=== PATIENT | female | born 1980 | race American Indian/Alaskan Native ===

== ENCOUNTER 2020-10-23 23:35 | Emergency (ER) | payer SELFPAY ==
[2020-10-24 01:22] VITALS: BP 144/85
[2020-10-24] MEDS ORDERED: ACETAMINOPHEN 325 MG TAB PO ONE (01:25)
--- NOTE | 2020-10-24 03:23 | Emergency Department Report ---
Upper Extremity - HPI Chief Complaint: Wound/Laceration Stated Complaint: LACERATION TO RIGHT PINKY FINGER Time Seen by Provider: 10/24/20 03:04 Upper Extremity: Right Little Finger Occurred When: Today Mechanism: Fall Severity: mild Symptoms: Yes Pain with Movement, Yes Swelling, Yes Laceration or Abrasion, No Deformity ED Review of Systems ROS: Stated complaint: LACERATION TO RIGHT PINKY FINGER Other details as noted in HPI Comment: All other systems reviewed and negative ED Past Medical Hx - Past Medical History Previous Medical History?: No Upper Extremity Exam - Exam General: Vital signs noted. No distress. Alert and acting appropriately. Head and Torso: No HEENT Abnormality Shoulder Exam: No Shoulder Tenderness, No Clavicle Tenderness, No Normal Range of Motion in Shoulder, No Shoulder Deformity Arm Exam: No Arm/Humerus Tenderness Elbow: No Elbow Tenderness, No Normal Range of Motion in Elbow Forearm: No Forearm Tenderness, No Forearm Deformity, No Pain with Pronation Wrist: Yes Normal ROM in Wrist Hand: Yes Hand Tenderness, Yes Digit Tenderness CMS Exam: Yes Broken Skin, No Normal Distal Pulses, No Normal Capillary Refill, No Normal Distal Sensation Hand L/R Front: 1 - Skin tear laceration with partial skin avulsion and swelling. ED Course Vital Signs 10/24/20 01:20 Temperature 98.3 F Pulse Rate 75 Respiratory 18 Rate Blood Pressure 144/85 O2 Sat by Pulse 100 Oximetry Critical care attestation.: If time is entered above; I have spent that time in minutes in the direct care of this critically ill patient, excluding procedure time. ED Disposition Clinical Impression: Finger laceration Disposition: HOME / SELF CARE / HOMELESS Condition: Stable Instructions: Nonsutured Laceration Care, Sutured Wound Care, [id number] Additional Instructions: To the emerge department today for a finger injury resulting in days ScanTest/laceration. The wound was irrigated and cleaned and aseptic bandage was placed patient will follow up in 2 days for wound reevaluation stitches were not placed due to the location and of the wound and character of the laceration with some avulsion of your skin will let you heal by secondary intention. X-ray showed no evidence of fractures. Keep wound clean antibiotic biotic soap and water and dress wound with gauze and nonstick dressing Referrals: PRIMARY CARE, [Primary Care Provider] - 3-5 Days
--- NOTE | 2020-10-24 04:19 | XRay Report ---
XR finger(s) 2+V RT INDICATION: Ring finger laceration. COMPARISON: No relevant prior imaging study available. FINDINGS: Anatomic detail is limited due to bandaging overlying the fingers. Accounting for this, no acute skel etal abnormality. No radiodense foreign bodies. IMPRESSION: 1. No acute findings. Signer Name: Drake Michael MD Signed: 10/24/2020 4:15 AM Workstation Name: [id number]
[2020-10-24] MEDS ORDERED: IBUPROFEN 600 MG TAB PO ONE (05:13)
[2020-10-24] MEDS ORDERED: oxyCODONE /ACETAMINOPHEN 5-325MG TAB PO ONE (05:13)
[2020-10-24] MEDS ORDERED: ONDANSETRON 4 MG ODT TAB PO ONE (05:28)
== END 2020-10-24 06:35 | disposition home or self-care (01) ==
LOC: ED 23:35
DX: S61.216A Laceration without foreign body of right little finger without damage to nail, initial encounter (principal); X58.XXXA Exposure to other specified factors, initial encounter; Y93.89 Activity, other specified; Y92.89 Other specified places as the place of occurrence of the external cause; Y99.8 Other external cause status
CPT/HCPCS: 99283; Q0162